=== PATIENT | female | born 1945 | race Caucasian/White ===

== ENCOUNTER 2019-01-29 22:28 | Emergency (ER) | payer MEDICARE, OTHER | END 2019-01-30 02:32 | disposition home or self-care (01) | LOC: JER 01-30 02:32 | PROC: 3E033NZ Introduction of Analgesics, Hypnotics, Sedatives into Peripheral Vein, Percutaneous Approach (ICD-10-PCS; principal; 2019-01-29) | PROC: 3E033GC Introduction of Other Therapeutic Substance into Peripheral Vein, Percutaneous Approach (ICD-10-PCS; 2019-01-29) | DX: N39.0 Urinary tract infection, site not specified (principal); I10 Essential (primary) hypertension; R42 Dizziness and giddiness; E11.9 Type 2 diabetes mellitus without complications; Z79.84 Long term (current) use of oral hypoglycemic drugs ==

== ENCOUNTER 2022-06-11 15:06 | Emergency (ER) | payer OTHER ==
[2022-06-11 15:35] VITALS: BP 133/76; PULSE 72; RESP 18; TEMP 98; BMI 26.6
[2022-06-11] MEDS ORDERED: IBUPROFEN 600 MG TABLET (FP) PO ONE ×2 (18:11→18:50)
[2022-06-11] MEDS ORDERED: ACETAMINOPHEN 325 MG TABLET (FP) PO ONE (18:11)
[2022-06-11] MEDS ORDERED: ACETAMINOPHEN 325 MG TABLET (FP) ONE (18:50)
[2022-06-11 19:07] LABS: URINE APPEARANCE CLEAR; URINE BILIRUBIN NEGATIVE (NEGATIVE); URINE COLOR YELLOW; URINE GLUCOSE (UA) NEGATIVE (NEGATIVE); URINE KETONE NEGATIVE (NEGATIVE); URINE LEUK ESTERASE NEGATIVE (NEGATIVE); URINE NITRITE NEGATIVE (NEGATIVE); URINE PROTEIN NEGATIVE (NEGATIVE); URINE UROBILINOGEN 0.2 mg/dL (0.2-1.0)
== END 2022-06-11 19:37 | disposition home or self-care (01) ==
LOC: JER 15:06
DX: M54.50 Low back pain, unspecified (principal)
CPT/HCPCS: 72100-TC-FY; 81003; 87086; 99284-25

== ENCOUNTER → 2023-01-08 | Day surgery (SDC) | payer OTHER | END | disposition home or self-care (01) | LOC: FMAMMOTONE 11:27 | PROVIDERS: ATTEND Physician Assistant | PROC: 0HBU3ZX Excision of Left Breast, Percutaneous Approach, Diagnostic (ICD-10-PCS; principal; 2023-01-08) | DX: N60.32 Fibrosclerosis of left breast (principal); N60.82 Other benign mammary dysplasias of left breast; N64.89 Other specified disorders of breast; R92.0 Mammographic microcalcification found on diagnostic imaging of breast | CPT/HCPCS: 19081; 76098-TC-FY; 87899; 88305-TC; A4648 ==

== ENCOUNTER 2023-05-11 09:26 | Emergency (ER) | payer OTHER ==
[2023-05-11 09:53] VITALS: RESP 18; BMI 25.4
[2023-05-11] MEDS ORDERED: SODIUM CHLORIDE 0.9% 500 ML INFUS.BAG IV ONE (10:14)
[2023-05-11 11:10] LABS: BASO % 0.5 % (0-2.0); EOS % 1.4 % (0-4.5); HEMATOCRIT 40.2 % (32.4-45.2); HEMOGLOBIN 13.1 GM/dL (10.7-15.3); LYMPH % 23.1 % (8-40); MCH 27.8 pg (25.7-33.7); MCHC 32.6 g/dl (32.0-36.0); MEAN CELL VOLUME 85.4 fl (80-96); MEAN PLT VOLUME 8.3 fl (7.5-11.1); MONO % 5.7 % (3.8-10.2); NEUT % 69.3 % (42.8-82.8); PLATELET COUNT 307 10^3/uL (134-434); RBC 4.71 M/mm3 (3.60-5.2); RDW 14.7 % (11.6-15.6); WHITE BLOOD COUNT 7.5 K/mm3 (4.0-10.0)
[2023-05-11 11:29] LABS: ACTIVATED PTT 30.5 SECONDS (25.2-36.5); INR 0.94 (0.83-1.09); PROTHROMBIN TIME (PATIENT) 10.9 SEC (9.7-13.0)
[2023-05-11 11:30] LABS: CALCIUM 9.8 mg/dL (8.5-10.1)
[2023-05-11 11:31] LABS: BLOOD UREA NITROGEN 13.4 mg/dL (7-18)
[2023-05-11 11:34] LABS: CREATININE 0.8 mg/dL (0.55-1.3)
[2023-05-11 11:35] LABS: TOT PROT 7.4 g/dl (6.4-8.2)
[2023-05-11 11:36] LABS: BILIRUBIN,TOTAL 0.6 mg/dL (0.2-1)
[2023-05-11 12:25] LABS: URINE APPEARANCE CLEAR; URINE BILIRUBIN NEGATIVE (NEGATIVE); URINE COLOR YELLOW; URINE GLUCOSE (UA) NEGATIVE (NEGATIVE); URINE KETONE NEGATIVE (NEGATIVE); URINE LEUK ESTERASE NEGATIVE (NEGATIVE); URINE NITRITE NEGATIVE (NEGATIVE); URINE PROTEIN NEGATIVE (NEGATIVE); URINE UROBILINOGEN 0.2 mg/dL (0.2-1.0)
[2023-05-11 13:47] VITALS: BP 130/75; PULSE 95; TEMP 98
== END 2023-05-11 13:46 | disposition home or self-care (01) ==
LOC: JER 09:26
DX: R53.1 Weakness (principal); R04.0 Epistaxis; Z20.822 Contact with and (suspected) exposure to COVID-19
CPT/HCPCS: 0241U-QW; 36415; 71045-TC-FY; 80053; 81003; 82962; 84443; 84484; 85025; 85610; 85730; 87086; 93005; 93010; 99285-25

== ENCOUNTER 2024-03-19 13:28 | Emergency (ER) | payer OTHER ==
[2024-03-19 13:39] VITALS: RESP 16; BMI 28.3
[2024-03-19] MEDS ORDERED: LIDOCAINE 5% TOPICAL PATCH ONE (14:32)
[2024-03-19] MEDS ORDERED: ACETAMINOPHEN 325 MG TABLET (FP) ONE (14:32)
[2024-03-19] MEDS: ACETAMINOPHEN 500 MG TABLET (FP) PO ONE (14:38)
[2024-03-19] MEDS: LIDOCAINE 4% PATCH TP ONE (14:39)
[2024-03-19] MEDS ORDERED: KETOROLAC TROMETHAMINE 30 MG/1 ML VIAL ONE (17:42)
[2024-03-19] MEDS: KETOROLAC TROMETHAMINE 30 MG/1 ML VIAL IM ONE (17:58)
[2024-03-19 17:59] VITALS: BP 161/74; PULSE 76; TEMP 98.1
[2024-03-19] MEDS ORDERED: LIDOCAINE PATCH REMOVAL MC SCH (22:00)
== END 2024-03-19 17:59 | disposition home or self-care (01) ==
LOC: JER 13:28
PROC: 3E0233Z Introduction of Anti-inflammatory into Muscle, Percutaneous Approach (ICD-10-PCS; principal; 2024-03-19)
DX: M79.651 Pain in right thigh (principal); R53.1 Weakness; M25.551 Pain in right hip
CPT/HCPCS: 72170-TC-FY; 72192-TC; 73502-TC-RT-FY; 73552-TC-RT-FY; 73700-TC-RT; 93971-TC; 96372; 99284-25

== ENCOUNTER 2024-03-19 18:33 | Emergency (ER) | payer OTHER ==
[2024-03-19 18:45] VITALS: BP 133/74; PULSE 76; RESP 16; TEMP 97.6; BMI 25.7
== END 2024-03-19 20:09 | disposition home or self-care (01) ==
LOC: JERFT 18:33
DX: S80.211A Abrasion, right knee, initial encounter (principal); W01.198A Fall on same level from slipping, tripping and stumbling with subsequent striking against other object, initial encounter
CPT/HCPCS: 99281-25

== ENCOUNTER 2024-05-29 04:11 | Day surgery (SDC) | payer OTHER ==
[2024-05-27 13:49] VITALS: BMI 25.8
[2024-05-29] MEDS ORDERED: BUPIVACAINE HCL/PF 0.5% (5MG/ML) 10 ML VIAL ONE (07:14)
[2024-05-29] MEDS ORDERED: LIDOCAINE HCL/PF 1% SDV 5ML VIAL ONE (07:14)
[2024-05-29] MEDS ORDERED: BUPIVACAINE HCL/PF 0.25% (2.5MG/ML) 10 ML VIAL ONE (07:14)
[2024-05-29] MEDS ORDERED: DEXAMETHASONE SOD PHOSPHATE 10 MG/1 ML VIAL ONE (07:14)
[2024-05-29] MEDS ORDERED: BUPIVACAINE HCL/PF 0.75% 10 ML VIAL ONE (07:14)
[2024-05-29] MEDS: LIDOCAINE HCL 1% PRESERVATIVE FREE - 30ML VIAL IJ ONE (09:10)
[2024-05-29] MEDS: IOHEXOL 180 MG/1 ML ML IJ ONE (09:10)
[2024-05-29] MEDS: DEXAMETHASONE SOD PHOSPHATE 10 MG/1 ML VIAL IVPUSH ONE (09:11)
[2024-05-29 10:20] VITALS: BP 134/77; PULSE 74; RESP 18; TEMP 97.8
[2024-05-29] MEDS ORDERED: ACETAMINOPHEN 500 MG TABLET (FP) PO PRN (12:11)
== END 2024-05-29 10:00 | disposition home or self-care (01) ==
LOC: JASU-SURG 04:11
PROVIDERS: ATTEND Pain Medicine Pain Medicine
PROC: 3E0R3BZ Introduction of Anesthetic Agent into Spinal Canal, Percutaneous Approach (ICD-10-PCS; 2024-05-29)
PROC: 3E0R33Z Introduction of Anti-inflammatory into Spinal Canal, Percutaneous Approach (ICD-10-PCS; principal; 2024-05-29 08:45)
DX: M54.16 Radiculopathy, lumbar region (principal)
CPT/HCPCS: 76000-TC-FY; J1100